=== PATIENT | female | born 1950 | race Hispanic/Latino ===

== ENCOUNTER 2016-03-27 08:51 | Outpatient (CLI) | payer MEDICARE ==
--- NOTE | 2016-03-27 10:28 | Mammography Report ---
BILATERAL MAMMOGRAM: FINDINGS: There are scattered fibroglandular densities (approximately 25%-50% glandular). No mass, distortion, suspicious calcification, or skin change is seen. The findings are essentially unchanged compared to prior exams dating back to 2014. CAD was utilized. IMPRESSION: Negative mammogram. There is no mammographic evidence of malignancy. RECOMMENDATION: Follow-up per ACS guidelines. BI-RADS CATEGORY: 1 = Negative ACR BI-RADS MAMMOGRAPHIC CODES: 0 = Needs additional imaging evaluation; 1 = Negative; 2 = Benign; 3 = Probably benign; 4 = Suspicious; 5 = Malignant; 6 = Known biopsy-proven malignancy COMMENT: 1. Dense breast tissue, i.e., adenosis, fibrocystic changes, etc., may obscure an underlying neoplasm. 2. Approximately 10% of cancers are not detected with mammography. 3. A negative mammography report should not delay biopsy if a clinically suspicious mass is present. COMMENT: Patient follow-up letters are generated in [employer].
== END 2016-03-27 08:52 | disposition home or self-care (01) ==
LOC: SPVWC 08:51
PROVIDERS: ATTEND Obstetrics & Gynecology
DX: Z12.31 Encounter for screening mammogram for malignant neoplasm of breast (principal)
CPT/HCPCS: 77067; G0202

== ENCOUNTER 2017-04-17 10:13 | Outpatient (CLI) | payer MEDICARE ==
--- NOTE | 2017-04-18 14:52 | Mammography Report ---
BILATERAL DIGITAL SCREENING MAMMOGRAM with CAD : 04/17/17 10:13:00 CLINICAL: Routine screening. COMPARISON:03/27/16 FINDINGS: The breasts are mostly fatty with a few bilateral retroareolar and upper outer heterogeneously dense fibroglandular densities. The fibroglandular pattern is stable. No mass, architectural distortion or suspicious calcifications. IMPRESSION: No mammographic evidence of malignancy. BI-RADS CATEGORY: 2 -- Benign RECOMMENDATION: Routine mammographic screening in one year. COMMENT: Patient follow-up letters are generated by our [employer] application.
== END 2017-04-17 10:14 | disposition home or self-care (01) ==
LOC: SPVWC 10:13
PROVIDERS: ATTEND Obstetrics & Gynecology
DX: Z12.31 Encounter for screening mammogram for malignant neoplasm of breast (principal)
CPT/HCPCS: 77067

== ENCOUNTER 2018-05-01 10:09 | Outpatient (CLI) | payer MEDICARE ==
--- NOTE | 2018-05-01 16:14 | Mammography Report ---
BILATERAL DIGITAL SCREENING MAMMOGRAM with CAD: 05/01/18 10:09:00 CLINICAL: Routine screening. COMPARISON:04/17/17, 03/27/16 and 01/25/15 FINDINGS: There are bilateral scattered areas of fibroglandular density. No mass, architectural distortion or suspicious calcifications. IMPRESSION: No mammographic evidence of malignancy. BI-RADS CATEGORY: 2 -- Benign RECOMMENDATION: Routine mammographic screening in one year. COMMENT: Patient follow-up letters are generated by our [employer] application.
== END 2018-05-01 10:10 | disposition home or self-care (01) ==
LOC: SPVWC 10:09
PROVIDERS: ATTEND Obstetrics & Gynecology
DX: Z12.31 Encounter for screening mammogram for malignant neoplasm of breast (principal)
CPT/HCPCS: 77067

== ENCOUNTER 2018-07-18 13:48 | Outpatient (CLI) | payer MEDICARE ==
--- NOTE | 2018-07-18 16:23 | Mammography Report ---
RIGHT DIGITAL DIAGNOSTIC MAMMOGRAM with CAD and RIGHT BREAST ULTRASOUND: 07/18/18 13:30:00 CLINICAL: Palpable right breast lump. COMPARISON:05/01/18 screen mammogram FINDINGS: The breast is heterogeneously dense with a stable fibroglandular pattern.No mammographic finding at a palpable marker at 7 o'clock approximately 4 cm from the nipple. Ultrasound of the right breast demonstrated a tiny skin lesion at 7 o'clock 4 cm from the nipple. It is hypoechoic and measures 6 x 2 x 2 mm. The skin is thickened and measures approximately 3 mm at the lesion. Mild benign duct ectasia at 10 o'clock 2 cm from the nipple. No suspicious mass. IMPRESSION: A benign skin lesion at 7 o'clock 4 cm from the nipple and benign duct ectasia. This may be a small sebaceous cyst or a small inflammatory lesion. BI-RADS CATEGORY: 2 -- Benign RECOMMENDATION: Clinical follow-up of the palpable area and routine mammographic screening based on ACS guidelines. The patient was advised to see her primary care physician, [employer] doctor or a [employer] professor if the skin lesion enlarges or if she develops new symptoms. COMMENT: 1. Dense breast tissue, i.e., adenosis, fibrocystic changes, etc., may obscure an underlying neoplasm. 2. Approximately 10% of cancers are not detected with mammography. 3. A negative mammography report should not delay biopsy if a clinically suspicious mass is present. COMMENT: Patient follow-up letters are generated by our [employer] application.
== END 2018-07-18 13:49 | disposition home or self-care (01) ==
LOC: SPVWC 13:48
PROVIDERS: ATTEND Obstetrics & Gynecology
DX: N63.13 Unspecified lump in the right breast, lower outer quadrant (principal)

== ENCOUNTER 2020-08-05 13:04 | Outpatient (CLI) | payer MEDICARE ==
--- NOTE | 2020-08-05 15:20 | Mammography Report ---
DIGITAL SCREENING MAMMOGRAM WITH CAD, 08/05/2020 CLINICAL INFORMATION / INDICATION: Routine screening mammography. SCREENING MAMMO TECHNIQUE: Digital bilateral 2D mammography was obtained in the craniocaudal and mediolateral obliqu e projections. This examination was interpreted with the benefit of Computer-Aided Detection analysis . COMPARISON: 05/01/2018. 04/17/2017. 03/27/2016. 01/25/2015. 10/27/2013. FINDINGS: Breast Density: There are scattered areas of fibroglandular density. No dominant mass, suspicious calcifications, or architectural distortion in either breast. IMPRESSION: No mammographic evidence of malignancy. Follow up recommendation: Routine yearly BI-RADS Category 1: Negative. A "normal" or negative report should not discourage follow up or biopsy of a clinically significant f inding. A written summary of these findings will be mailed to the patient. The patient will be entered into a mammography reporting system which will generate a reminder letter for the patient's next appointmen t at the appropriate interval. The [employer] recommends yearly mammograms starting at age 40 and continuing as l razia as a woman is in good health. Breast MRI is recommended for women with an approximate 20-25% or greater lifetime risk of breast cancer, including women with a strong family history of breast or ova gloria cancer or who have been treated for Hodgkin's disease. Signer Name: Papo Rose MD Signed: 08/05/2020 3:15 PM Workstation Name: [id number]
== END 2020-08-05 13:05 | disposition home or self-care (01) ==
LOC: SPVWC 13:04
PROVIDERS: ATTEND Obstetrics & Gynecology
DX: Z12.31 Encounter for screening mammogram for malignant neoplasm of breast (principal)
CPT/HCPCS: 77067

== ENCOUNTER 2021-08-09 11:24 | Outpatient (CLI) | payer MEDICARE ==
--- NOTE | 2021-08-10 09:10 | Mammography Report ---
DIGITAL SCREENING MAMMOGRAM WITH CAD, 08/09/2021 CLINICAL INFORMATION / INDICATION: Routine screening mammography. SCREENING MAMMO TECHNIQUE: Digital bilateral 2D mammography was obtained in the craniocaudal and mediolateral obliqu e projections. This examination was interpreted with the benefit of Computer-Aided Detection analysis . COMPARISON: 08/05/2020. FINDINGS: Breast Density: The breasts are heterogeneously dense, which may obscure small masses. No dominant mass, suspicious calcifications, or architectural distortion in either breast. IMPRESSION: No mammographic evidence of malignancy. Follow up recommendation: Routine yearly screening mammogram. BI-RADS Category 1: NEGATIVE A "normal" or negative report should not discourage follow up or biopsy of a clinically significant f inding. A written summary of these findings will be mailed to the patient. The patient will be entered into a mammography reporting system which will generate a reminder letter for the patient's next appointmen t at the appropriate interval. The [employer] recommends yearly mammograms starting at age 40 and continuing as l razia as a woman is in good health. Breast MRI is recommended for women with an approximate 20-25% or greater lifetime risk of breast cancer, including women with a strong family history of breast or ova gloria cancer or who have been treated for Hodgkin's disease. Signer Name: Gene Griffith MD Signed: 08/10/2021 9:06 AM Workstation Name: [id number]
== END 2021-08-09 11:25 | disposition home or self-care (01) ==
LOC: SPVWC 11:24
PROVIDERS: ATTEND Obstetrics & Gynecology
DX: Z12.31 Encounter for screening mammogram for malignant neoplasm of breast (principal)
CPT/HCPCS: 77067